=== PATIENT | male | born 1990 | race Two or more races ===

== ENCOUNTER 2021-09-02 06:59 | Outpatient (CLI) | payer OTHER | END 2021-09-02 07:00 | disposition home or self-care (01) | LOC: LAB 06:59 | PROVIDERS: ATTEND Obstetrics & Gynecology | DX: Z20.818 Contact with and (suspected) exposure to other bacterial communicable diseases (principal); Z20.828 Contact with and (suspected) exposure to other viral communicable diseases ==

== ENCOUNTER 2022-10-11 17:53 | Emergency (ER) | payer OTHER ==
[~2022-10-11] VITALS: Ht 167.6 cm; Wt 61.2 kg
== END 2022-10-12 01:31 | disposition home or self-care (01) ==
LOC: ER 17:53
DX: R10.84 Generalized abdominal pain (principal); Z20.822 Contact with and (suspected) exposure to COVID-19